=== PATIENT | male | born 2000 | race Caucasian/White ===

== ENCOUNTER 2023-07-16 12:44 | Emergency (ER) | payer OTHER, SELFPAY ==
--- NOTE | 2023-07-16 12:48 | XR_ITS ---
WS: [id number] Right hand, 3 views, 07/16/2023 Clinical Data: injury Comparison: None. Findings: There is a fracture with soft tissue injury of the ungual tuft of the right fourth finger distal phalanx. The joint spaces are normal. The remainder of the soft tissues is unremarkable. Impression: Fracture of the ungual tuft of the distal phalanx of the right fourth finger.
[2023-07-16 13:09] VITALS: BP 91/37; PULSE 72; RESP 17; TEMP 36.7; O2SAT 97; BMI 20.5
--- NOTE | 2023-07-16 14:14 | W.ED.EXTPRO ---
HPI - Extremity Problem General: Chief complaint: Extremity Injury, Upper Stated complaint: Right ring finger pain Time Seen by Provider: 07/16/23 14:07 History of Present Illness: 23-year-old male patient comes in for injury to the right ring finger. Patient works at a [employer] and was loading up a piece of wood into the mail when the piece of wood shot forward catching his finger between the wood and a piece of metal. The distal tip of his finger was crushed. Patient became lightheaded and faint. On exam we see displacement of the nail, and laceration to the lateral aspect of the nail and distal finger. Patient reports his tetanus is up-to-date. Patient appears nontoxic. Patient appears in moderate to severe pain. Review of Systems General: Reports: 10 or more systems reviewed and unremarkable except in HPI and below Musc: Reports: extremity pain Skin/Breast: Reports: new lesions Physical Exam Const: COMMON NORMALS: alert HENMT: COMMON NORMALS: normocephalic HEAD & SCALP: normocephalic Neck/C-Spine: COMMON NORMALS: full ROM Resp: COMMON NORMALS: normal respiratory effort Cardio: COMMON NORMALS: regular rate RATE: regular rate GI: COMMON NORMALS: Soft to palpation and non-tender PALPATION: Yes Soft to palpation Back/Pelvis: COMMON NORMALS: thoracic and lumbar spine normal to inspection Extremity: COMMON NORMALS: full ROM Neuro: SENSORIUM/ORIENTATION: Yes alert Skin: NARRATIVE SKIN EXAM: Partial avulsion of the ring finger nail. Laceration to the lateral aspect of the distal finger approximately Procedures Laceration Laceration 1: Site: hand Side (If applicable): right Size (cm): 3 Description: irregular Local Anesthetic: lidocaine 2% and with epi Amount of anesthesia used (mL): 4 Pre-repair: wound explored and irrigated extensively Skin layer closed with: nylon Size (cm): 4-0 Number of sutures: 5 Technique: simple, interrupted Course ED course: 1500, Dr. Humphrey had talked with Dr. Kiran Oquendo regarding injury. Dr. Oquendo was out of town and recommended patient be referred out for evaluation with hand vision care associate. Vital Signs: Vital signs: Vital Signs Temperature 98.1 F 07/16/23 13:09 Pulse Rate 60 07/16/23 14:18 Respiratory Rate 17 07/16/23 13:09 Blood Pressure 128/67 07/16/23 14:18 Pulse Oximetry 100 07/16/23 14:18 Oxygen Delivery Me thod Room Air 07/16/23 14:18 MDM - Extremity (Nontraumatic) Medical Decision Making Patient presents today with injury to the right ring finger. On exam patient has a crush injury noted to the distal tuft of the right ring finger. Wound was irrigated thoroughly. Partial avulsion of the nail was noted from the bed. Laceration wrapped around the lateral aspect of the wound. Cap refill is intact. Differential diagnosis fracture, laceration, near amputation, nail avulsion. Wound was irrigated nail was placed back into bed and secured with sutures. Patient tolerated procedure well under a digital anesthesia block. Wound was cleaned and supported in gauze. Talk with Dr. Trammell at [facility] orthopedic hand who agreed to see patient next week for follow-up visit. Doxycycline and hydrocodone was sent to [facility] pharmacy in [place]. Patient and family both reported understanding of care plan. All radiology interpretation(s) finalized by discharge Discharge Plan Discharge Patient Disposition: Home Clinical Impression: Crushed finger, distal Qualifiers: Encounter type: initial encounter Qualified Code(s): S67.10XA - Crushing injury of unspecified finger(s), initial encounter Laceration of finger nail bed Qualifiers: Encounter type: initial encounter Qualified Code(s): S61.319A - Laceration without foreign body of unspecified finger with damage to nail, initial encounter Condition: Stable Prescriptions: New hydrocodone-acetaminophen 5-325 mg tablet 1 tab PO Q6H PRN (Reason: pain (scale score 7-10)) Qty: 10 0RF doxycycline hyclate 100 mg capsule 100 mg PO BID 10 Days Qty: 20 0RF Rx Instructions: stop cephalexin Discharge Orders: Discharge ED (Routine); Ordered 07/16/23 Ordered By: Asa Gallegos Referrals: Lucretai Trammell [Referring] - Discharge Diet: Usual diet Discharge Activity: Increase activity as tolerated Patient Instructions: Finger Laceration (ED) Activity Restrictions/Additional Instructions: Keep wound clean and dry. Keep dressing intact. Follow-up with hand vision care associate for further evaluation and treatment. Return to ER for fever greater than 100.4, uncontrolled pain, or new concerns. Coding Level of Care Code ED Quality Analyst/Technical Writer for Eric Cade
--- NOTE | 2023-07-16 14:15 | PC.PHAR ---
pt states he takes no rx or otc medications
[2023-07-16 14:18] VITALS: BP 128/67; PULSE 60; O2SAT 100
[2023-07-16] MEDS: HYDROcodone-acetaminophen 10-325 mg Tablet 1 TAB PO (14:21)
[2023-07-16] MEDS: lidocaine-epi 2% 20 mL INJ INJECTION (14:22)
--- NOTE | 2023-07-16 14:23 | PC.NURSE ---
LIDOCAINE ADMINISTERED BY PROVIDER, KATINA MCKEON.
[2023-07-16] MEDS: ceFAZolin 2,000 MG in sodium chloride 0.9% (plus) 50 ML 100 MG IV (15:12)
[2023-07-16 15:35] VITALS: BP 131/66; PULSE 74; O2SAT 98
== END 2023-07-16 15:37 | disposition home or self-care (01) ==
PROVIDERS: Emergency Provider Nurse Practitioner Family
DX: S67.194A Crushing injury of right ring finger, initial encounter (principal); S61.314A Laceration without foreign body of right ring finger with damage to nail, initial encounter; W23.0XXA Caught, crushed, jammed, or pinched between moving objects, initial encounter; Y99.0 Civilian activity done for income or pay
CPT/HCPCS: 12002; 73130; 96365; 99284; J0690